=== PATIENT | female | born 1940 | race Caucasian/White ===

== ENCOUNTER 2019-02-25 11:49 | Observation (INO) | payer BC ==
[2019-02-25 12:28] LABS: BASO % 0.7 % (0-2.0); HEMATOCRIT 32.8 % (32.4-45.2); HEMOGLOBIN 10.7 GM/dL (10.7-15.3); LYMPH % 15.4 % (8-40); MCH 25.8 pg (25.7-33.7); MCHC 32.6 g/dl (32.0-36.0); MEAN CELL VOLUME 79.1 fl (80-96); MEAN PLT VOLUME 7.5 fl (7.5-11.1); MONO % 13.8 % (3.8-10.2); NEUT % 70.1 % (42.8-82.8); PLATELET COUNT 232 K/MM3 (134-434); RBC 4.15 M/mm3 (3.60-5.2); WHITE BLOOD COUNT 5.5 K/mm3 (4.0-10.0)
--- NOTE | 2019-02-25 12:40 | PDOC ---
Documentation entered by Carlton Carter SCRIBE, acting as scribe for Bryanna Valadez MD. Bryanna Valadez MD: This documentation has been prepared by the Raul swan Daniel, SCRIBE, under my direction and personally reviewed by me in its entirety. I confirm that the documentation accurately reflects all work, treatment, procedures, and medical decision making performed by me. History of Present Illness - General Chief Complaint: Syncope/Near Syncope Stated Complaint: SYNCOPE Time Seen by Provider: 02/25/19 11:57 History Source: Patient, Family Exam Limitations: No Limitations - History of Present Illness Initial Comments: 02/25/19 12:27 The patient is a 78 year old female with a past medical history of gastritis/ peptic ulcer disease, ulcerative colitis on mesalamine, HTN, retinal neuropathy , mild aortic stenosis, and GERD brought in today by EMS for evaluation of syncope. The patient reports that she was in [employer]u[place] when she felt a sudden severe headache and dizziness, went to sit down, and passed out. EMS reports that the patient was foaming at the mouth, but is amnesic to the events. afterwards, she felt nauseous. en route with EMS received zofran.. Patients family reports that the patient had a syncopal episode last year, which was attributed to the heat exhaustion/dehydration and notes that since her shoulder replacement in November 2018, the patients blood pressure has been difficult to control. As per EMS, the patient vomited once. Patient states that she currently feels fine but notes feeling out of sorts. Patient denies fever, chills. Denies chest pain, shortness of breath. Denies nausea, diarrhea, abdominal pain. Denies vision changes, blindness, eye pain/ discharge, hearing changes. denies recent sickness/respiratory illnesses. Allergies: amlodipine, lipase, NSAIDS Surgical history: laminectomy spinal fusion, rotator cuff repair, arthroplasty, reverse shoulder replacement (12/18), b/l hip replacements PCP: Anastacia Zuleta Brick Paver: Suzanne Wilkins 02/25/19 12:40 Past History - Past Medical History Allergies/Adverse Reactions: Allergies Allergy/AdvReac Type Severity Reaction Status Date / Time amlodipine [From Norvasc] Allergy Verified 02/25/19 11:51 lipase AdvReac Verified 02/25/19 11:51 NSAIDS (Non-Steroidal AdvReac Verified 02/25/19 11:51 Anti-Inflamma Cardiac Disorders: Yes (aortic stenosis) COPD: No GI Disorders: Yes (colitis) HTN: Yes Hypercholesterolemia: Yes Other medical history: optic neuropathy - Surgical History Neurologic Surgery: Yes (spinal fussion l2-l5) - Psycho Social/Smoking Cessation Hx Smoking History: Never smoked Have you smoked in the past 12 months: No Information on smoking cessation initiated: No Hx Alcohol Use: No Drug/Substance Use Hx: No Review of Systems - Review of Systems Able to Perform ROS?: Yes Comments:: 02/25/19 12:28 Constitutional: no fevers or chills. No weakness HEENT: +headache, dizziness. No congestion. No visual/hearing disturbances. CVS: no cp or syncope. Resp: no sob. No cough. Gastrointestinal: +vomiting. no abdominal pain, nausea, diarrhea. Genitourinary: no urinary sx, hematuria. MUSCULOSKELETAL: No joint pain and swelling. No neck or back pain. SKIN: no redness or skin changes, no discharge, no rash. No wounds. Hematologic: no easy bruising/bleeding. NEUROLOGIC: No headache, dizziness, LOC or altered mental status. No weakness, numbness or tingling. Psych: no anxiety or depression Allergic/Immunologic: no allergies All other systems reviewed and negative, or as documented in HPI. *Physical Exam - Vital Signs Last Vital Signs Temp Pulse Resp BP Pulse Ox 97.3 F L 65 18 159/76 96 02/25/19 12:02 02/25/19 12:02 02/25/19 12:02 02/25/19 12:02 02/25/19 12:02 - Physical Exam Comments: 02/25/19 12:29 General: Well appearing, awake and alert, NAD. HEENT: NCAT, PERRL, EOMI, clear conjunctiva, anicteric, moist mucus membranes, clear oropharynx, no oral lesions.. Neck: neck supple, FROM Resp: CTAB, normal and even respirations, no respiratory distress CVS: +holosystolic murmur. RRR, 2+ peripheral pulses throughout, no peripheral edema Abdomen: soft, NTND, no rebound or guarding. No CVAT. Back: nontender, normal inspection and ROM MSK: no edema, NOBLE x4, ROM intact. No clubbing or cyanosis. normal bulk and tone. Extremities: no calf tenderness Neuro: alert, oriented appropriately; no focal neurologic deficitsAlert, oriented to person time and place. No carotid bruit, CN II-XII grossly intact. Strength prox and distally 5/5 throughout. Sensation grossly intact to light touch. NOBLE x4. No cerebellar signs, no dysmetria, bilateral finger to nose and heel to [place] equal and symmetric. Speech clear. Psych: Calm and cooperative Skin: warm and well perfused, cap refill <2 sec, normal color Heart Score/ECG Review #1 ECG reviewed & interpreted by me at: 12:05 General ECG Interpretation: Sinus Rhythm, Normal Rate, Normal Intervals Compared to previous ECG there are: Previous ECG unavail 02/25/19 12:36 Nonspecific T wave flattening in lead III, note contiguously changes, no ST/ depressions or elevations. ED Treatment Course - LABORATORY CBC & Chemistry Diagram: 02/25/19 12:11 02/25/19 12:11 - ADDITIONAL ORDERS Additional order review: 02/25/19 12:11 RBC 4.15 MCV 79.1 L MCHC 32.6 RDW 15.0 MPV 7.5 Neutrophils % 70.1 Lymphocytes % 15.4 Monocytes % 13.8 H Eosinophils % 0.0 Basophils % 0.7 - RADIOLOGY Radiology Studies Ordered: Category Date Time Status HEAD CT WITHOUT CONTRAST [CT] Stat CT Scan 02/25/19 12:20 Ordered CHEST X-RAY PORTABLE* [RAD] Stat Radiology 02/25/19 11:58 Ordered Medical Decision Making - Medical Decision Making 02/25/19 12:36 Vital Signs Temp Pulse Resp BP Pulse Ox 97.3 F L 65 18 159/76 96 02/25/19 12:02 02/25/19 12:02 02/25/19 12:02 02/25/19 12:02 02/25/19 12:02 DDx. syncope: considered interval abnormalities including short QTC or long QT syndrome, WPW, conduction abnormality, Brugada, ACS, PE, electrolyte disturbances, metabolic derangement. seizure, [employer] lesion, CVA, ICH, SAH. Laboratory results reviewed within normal limits. Troponin is negative, EKG is unremarkable as documented, patient currently is asymptomatic, requesting food. CT head is negative for subarachnoid hemorrhage or CVA, as her onset of headache and symptoms were within 6-hour time time period from onset, 100% sensitivity to rule out for subarachnoid hemorrhage as etiology of her headache and syncope. She has no infectious symptoms. abdomen nontender. Neurologically intact as documented. Though there is a holosystolic murmur present with a history of aortic stenosis so there is concern that syncopal episode could be coming from a cardiac/structural etiology that warrants further echocardiogram, cardiology evaluation and inpatient management. Signed out to hospitalist team, Dr Santiago, for tele observation, medical management and workup of syncope 02/25/19 14:02 Discharge - Discharge Information Problems reviewed: Yes Clinical Impression/Diagnosis: Syncope Qualifiers: Syncope type: unspecified Qualified Code(s): R55 - Syncope and collapse Condition: Fair - Admission Yes - Follow up/Referral Referrals: Anastacia Raygoza MD [Primary Care Provider] - - Patient Discharge Instructions - Post Discharge Activity
[2019-02-25] MEDS ORDERED: ACETAMINOPHEN 325 MG TABLET (FP) PO ONE (13:00)
[2019-02-25] MEDS ORDERED: ACETAMINOPHEN 325 MG TABLET (FP) ONE (13:28)
[2019-02-25 13:45] LABS: ALK PHOS 75 U/L (45-117); ANION GAP 8 MMOL/L (8-16); BILIRUBIN,TOTAL 0.5 mg/dL (0.2-1); BLOOD UREA NITROGEN 19.3 mg/dL (7-18); CALCIUM 9.3 mg/dL (8.5-10.1); CHLORIDE 102 mmol/L (98-107); CO2 23 mmol/L (21-32); CREATININE 0.8 mg/dL (0.55-1.3); GLUCOSE,RANDOM 123 mg/dL (74-106); MAGNESIUM 2.2 mg/dL (1.8-2.4); POTASSIUM 4.3 mmol/L (3.5-5.1); SGOT/AST 31 U/L (15-37); SGPT/ALT 27 U/L (13-61); SODIUM 133 mmol/L (136-145); TOT PROT 7.6 g/dl (6.4-8.2)
[2019-02-25] MEDS ORDERED: SODIUM CHLORIDE 0.9% 500 ML INFUS.BAG IV ONE (13:52)
--- NOTE | 2019-02-25 14:55 | EKG ---
Test Reason : Blood Pressure : / mmHG Vent. Rate : 060 BPM Atrial Rate : 060 BPM P-R Int : 188 ms QRS Dur : 094 ms QT Int : 446 ms P-R-T Axes : 031 -10 020 degrees QTc Int : 446 ms NORMAL SINUS RHYTHM NORMAL ECG NO PREVIOUS ECGS AVAILABLE Confirmed by ОЛЬГА MORENO, HALLIE ([id number]) on 02/25/2019 2:55:22 PM Referred By: Confirmed By:HALLIE ROLON MD
--- NOTE | 2019-02-25 15:03 | CON.CARD ---
Consult Consult Specialty:: Cardiology Reason for Consultation:: syncope - History of Present Illness History of Present Illness: The patient is a 78 year old female with a past medical history of gastritis/ peptic ulcer disease, ulcerative colitis on mesalamine, HTN, retinal neuropathy , mild aortic stenosis, and GERD brought in today by EMS for evaluation of syncope. The patient reports that she was in [employer] when she felt a sudden severe headache and dizziness, went to sit down, and passed out. EMS reports that the patient was foaming at the mouth, but is amnesic to the events. afterwards, she felt nauseous. en route with EMS received zofran.. Patients family reports that the patient had a syncopal episode last year, which was attributed to the heat exhaustion/dehydration and notes that since her shoulder replacement in November 2018, the patients blood pressure has been difficult to control. As per EMS, the patient vomited once. Patient states that she currently feels fine but notes feeling out of sorts. Patient denies fever, chills. Denies chest pain, shortness of breath. Denies nausea, diarrhea, abdominal pain. Denies vision changes, blindness, eye pain/ discharge, hearing changes. denies recent sickness/respiratory illnesses. - History Source History Provided By: Medical Record - Past Medical History Cardio/Vascular: Yes: HTN - Alcohol/Substance Use Hx Alcohol Use: No - Smoking History Smoking history: Never smoked Have you smoked in the past 12 months: No Home Medications - Allergies Allergies/Adverse Reactions: Allergies Allergy/AdvReac Type Severity Reaction Status Date / Time amlodipine [From [facility]] Allergy Verified 02/25/19 11:51 lipase AdvReac Verified 02/25/19 11:51 NSAIDS (Non-Steroidal AdvReac Verified 02/25/19 11:51 Anti-Inflamma Review of Systems - Review of Systems Constitutional: reports: No Symptoms Eyes: reports: No Symptoms HENT: reports: No Symptoms Neck: reports: No Symptoms Cardiovascular: reports: No Symptoms Gastrointestinal: reports: Nausea Genitourinary: reports: No Symptoms Breasts: reports: No Symptoms Reported Musculoskeletal: reports: No Symptoms Integumentary: reports: No Symptoms Neurological: reports: Syncope Endocrine: reports: No Symptoms Hematology/Lymphatic: reports: No Symptoms Psychiatric: reports: No Symptoms Vital Signs: Vital Signs Temperature 97.3 F L 02/25/19 12:02 Pulse Rate 65 02/25/19 12:02 Respiratory Rate 18 02/25/19 12:02 Blood Pressure 159/76 02/25/19 12:02 O2 Sat by Pulse Oximetry (%) 96 02/25/19 12:02 Constitutional: Yes: Well Nourished, No Distress, Calm Eyes: Yes: WNL, Conjunctiva Clear, EOM Intact HENT: Yes: WNL, Atraumatic, Normocephalic Neck: Yes: WNL, Supple, Trachea Midline Respiratory: Yes: WNL, Regular, CTA Bilaterally Gastrointestinal: Yes: WNL, Normal Bowel Sounds Renal/: Yes: WNL Cardiovascular: Yes: WNL, Regular Rate and Rhythm Heart Sounds: Yes: S1, S2 Murmur: Yes: Systolic Murmur Musculoskeletal: Yes: WNL Extremities: Yes: WNL Integumentary: Yes: WNL Neurological: Yes: WNL, Alert, Oriented ...Motor Strength: WNL Psychiatric: Yes: WNL, Alert, Oriented - Other Data Labs, Other Data: CBC, BMP 02/25/19 12:11 02/25/19 12:11 Troponin, BNP 02/25/19 12:11 Troponin I < 0.02 Troponin, BNP 02/25/19 12:11 Troponin I < 0.02 Imaging - Results Chest X-ray: Image Reviewed (cm no i/e) EKG: Image Reviewed (sr wnl) Assessment/Plan 78 year old female with a past medical history of gastritis/peptic ulcer disease , ulcerative colitis on mesalamine, HTN, retinal neuropathy, mild aortic stenosis, and GERD brought in today by EMS for evaluation of syncope. Plan r/o mi echo 24 holter telemetry bp control Neuro eval to r/o seizure
[2019-02-25 15:10] LABS: HYALINE CASTS 17 /lpf (0-8); URINE APPEARANCE CLEAR; URINE BACTERIA 3.3 /hpf (NEGATIVE); URINE BILIRUBIN NEGATIVE (NEGATIVE); URINE COLOR DK YELLOW; URINE GLUCOSE (UA) NEGATIVE (NEGATIVE); URINE KETONE TRACE (NEGATIVE); URINE LEUK ESTERASE TRACE (NEGATIVE); URINE NITRITE NEGATIVE (NEGATIVE); URINE PROTEIN 2+ (NEGATIVE); URINE RBC 6 /hpf (0-4); URINE WBC 5 /hpf (0-5)
--- NOTE | 2019-02-25 16:21 | HP ---
CHIEF COMPLAINT: syncope at [employer] PCP:dr espinoza HISTORY OF PRESENT ILLNESS: This is a 78 year old female with a past medical history of gastritis/peptic ulcer disease, ulcerative colitis on mesalamine, HTN, retinal neuropathy, mild aortic stenosis, and GERD brought in today by EMS for evaluation of syncope. The patient reports that she was in [employer] when she felt a sudden moderate headache and dizziness, went to sit down, and passed out. EMS reports that the patient was foaming at the mouth, but is amnesic to the events. afterwards, she felt nauseous. abd EMS gave her zofran.. Patients daugher reports that the patient had a syncopal episode last year, which was attributed to the heat exhaustion/dehydration and notes that since her shoulder replacement in November 2018, the patients blood pressure has been difficult to control. As per EMS, the patient vomited once. Patient states that she currently feels fine but notes feeling out of sorts. In er she had ct head done and it is negative for any stroke. Review of systems denies fever, chills. Denies chest pain, shortness of breath. Denies nausea, diarrhea, abdominal pain. Denies vision changes, blindness, eye pain/discharge, hearing changes. denies recent sickness/respiratory illnesses. ER course was notable for: (1)normal ct head (2)h/o syncope in past (3)h/o aortic stenosis Recent Travel: PAST MEDICAL HISTORY:The patient is a 78 year old female with a past medical history of gastritis/peptic ulcer disease, ulcerative colitis on mesalamine, HTN , retinal neuropathy, mild aortic stenosis, and GERD PAST SURGICAL HISTORY:shoulder surgery Social History: Smoking:none Alcohol:none Drugs: none Allergies amlodipine [From Norvas] Allergy (Verified 02/25/19 11:51) lipase Adverse Reaction (Verified 02/25/19 11:51) NSAIDS (Non-Steroidal Anti-Inflamma Adverse Reaction (Verified 02/25/19 11:51) HOME MEDICATIONS: Home Medications Medication Instructions Recorded Carvedilol 25 mg PO BID 02/25/19 Mesalamine 800 mg PO BID 02/25/19 Omeprazole 20 mg PO DAILY 02/25/19 Ramipril 10 mg PO HS 02/25/19 Rosuvastatin Calcium [Crestor] 20 mg PO HS 02/25/19 hydrALAZINE HCL [Apresoline -] 25 mg PO AM 02/25/19 hydrALAZINE HCL [Apresoline -] 50 mg PO HS 02/25/19 REVIEW OF SYSTEMS CONSTITUTIONAL: Absent: fever, chills, diaphoresis, generalized weakness, malaise, loss of appetite, weight change HEENT: Absent: rhinorrhea, nasal congestion, throat pain, throat swelling, difficulty swallowing, mouth swelling, ear pain, eye pain, visual changes CARDIOVASCULAR: Absent: chest pain, syncope, palpitations, irregular heart rate, lightheadedness , peripheral edema RESPIRATORY: Absent: cough, shortness of breath, dyspnea with exertion, orthopnea, wheezing, stridor, hemoptysis GASTROINTESTINAL: Absent: abdominal pain, abdominal distension, nausea, vomiting, diarrhea, constipation, melena, hematochezia GENITOURINARY: Absent: dysuria, frequency, urgency, hesitancy, hematuria, flank pain, genital pain MUSCULOSKELETAL: Absent: myalgia, arthralgia, joint swelling, back pain, neck pain SKIN: Absent: rash, itching, pallor HEMATOLOGIC/IMMUNOLOGIC: Absent: easy bleeding, easy bruising, lymphadenopathy, frequent infections ENDOCRINE: Absent: unexplained weight gain, unexplained weight loss, heat intolerance, cold intolerance NEUROLOGIC: Absent: headache, focal weakness or paresthesias, dizziness, unsteady gait, seizure, mental status changes, bladder or bowel incontinence PSYCHIATRIC: Absent: anxiety, depression, suicidal or homicidal ideation, hallucinations. PHYSICAL EXAMINATION Vital Signs - 24 hr 02/25/19 02/25/19 12:02 15:57 Temperature 97.3 F L 97.5 F L Pulse Rate 65 67 Respiratory 18 18 Rate Blood Pressure 159/76 143/83 O2 Sat by Pulse 96 Oximetry (%) GENERAL: Awake, alert, and fully oriented, in no acute distress. HEAD: Normal with no signs of trauma. EYES: Pupils equal, round and reactive to light, extraocular movements intact, sclera anicteric, conjunctiva clear. No lid lag. EARS, NOSE, THROAT: Ears normal, nares patent, oropharynx clear without exudates. Moist mucous membranes. NECK: Normal range of motion, supple without lymphadenopathy, JVD, or masses. LUNGS: Breath sounds equal, clear to auscultation bilaterally. No wheezes, and no crackles. No accessory muscle use. HEART: Regular rate and rhythm, normal S1 and S2 without murmur, rub or gallop. ABDOMEN: Soft, nontender, not distended, normoactive bowel sounds, no guarding, no rebound, no masses. No hepatomegaly or splenomegaly. MUSCULOSKELETAL: Normal range of motion at all joints. No bony deformities or tenderness. No CVA tenderness. UPPER EXTREMITIES: 2+ pulses, warm, well-perfused. No cyanosis. No clubbing. No peripheral edema. LOWER EXTREMITIES: 2+ pulses, warm, well-perfused. No calf tenderness. No peripheral edema. NEUROLOGICAL: Cranial nerves II-XII intact. Normal speech. Normal gait. PSYCHIATRIC: Cooperative. Good eye contact. Appropriate mood and affect. SKIN: Warm, dry, normal turgor, no rashes or lesions noted, normal capillary refill. Laboratory Results - last 24 hr 02/25/19 02/25/19 02/25/19 12:11 12:11 14:58 WBC 5.5 RBC 4.15 Hgb 10.7 Hct 32.8 MCV 79.1 L MCH 25.8 MCHC 32.6 RDW 15.0 Plt Count 232 MPV 7.5 Absolute Neuts (auto) 3.9 Neutrophils % 70.1 Lymphocytes % 15.4 Monocytes % 13.8 H Eosinophils % 0.0 Basophils % 0.7 Nucleated RBC % 0 Sodium 133 L Potassium 4.3 Chloride 102 Carbon Dioxide 23 Anion Gap 8 BUN 19.3 H Creatinine 0.8 Est GFR (CKD-EPI)AfAm 83.00 Est GFR (CKD-EPI)NonAf 71.61 Random Glucose 123 H Calcium 9.3 Magnesium 2.2 Total Bilirubin 0.5 AST 31 ALT 27 Alkaline Phosphatase 75 Creatine Kinase 189 Creatine Kinase Index 1.0 CK-MB (CK-2) 1.9 Troponin I < 0.02 Total Protein 7.6 Albumin 4.0 Urine Color Dk yellow Urine Appearance Clear Urine pH 6.0 Ur Specific [place] 1.024 Urine Protein 2+ H Urine Glucose (UA) Negative Urine Ketones Trace H Urine Blood Negative Urine Nitrite Negative Urine Bilirubin Negative Urine Urobilinogen 1.0 Ur Leukocyte Esterase Trace Urine WBC (Auto) 5 Urine RBC (Auto) 6 Urine Casts (Auto) 17 U Epithel Cells (Auto) 6.0 Urine Bacteria (Auto) 3.3 ASSESSMENT/PLAN: The patient is a 78 year old female with a past medical history of gastritis/ peptic ulcer disease, ulcerative colitis on mesalamine, HTN, retinal neuropathy , mild aortic stenosis, and GERD brought in today by EMS for evaluation of syncope. htn colitis h/o high lipids on medications arthritis take prn tylenol. Plan will start her home meds Current Medications Carvedilol (Coreg -) 25 mg PO BID KELLIE Hydralazine HCl (Apresoline -) 25 mg PO TID KELLIE Mesalamine (Asacol Hd -) 1,600 mg PO DAILY KELLIE Pantoprazole Sodium (Protonix -) 20 mg PO DAILY KELLIE Ramipril (Altace -) 10 mg PO DAILY KELLIE Rosuvastatin Calcium (Crestor -) 20 mg PO HS KELLIE carotid sono r/o stenosis echo to look for aortic stenosis serial troponins r/o any acute mi cardiac consult r/o mi and look into cardiac causes of syncope her ct head is normal and requested neuro consult r/o any seizure . control her blood pressure Visit type - Emergency Visit Emergency Visit: Yes ED Registration Date: 02/25/19 Care time: The patient presented to the Emergency Department on the above date and was hospitalized for further evaluation of their emergent condition. - New Patient This patient is new to me today: Yes Date on this admission: 02/25/19 - Critical Care Critical Care patient: No
[2019-02-25 16:35] VITALS: BMI 30.3
[2019-02-25 16:53] LABS: URINE CRYSTALS MODERATE /hpf
[2019-02-25] MEDS ORDERED: hydrALAZINE HCL 25 MG TABLET (FP) PO SCH (22:00)
[2019-02-25] MEDS: ROSUVASTATIN CA 20 MG TABLET (FP) PO SCH (22:04)
[2019-02-25] MEDS: CARVEDILOL 25 MG TABLET (FP) PO SCH (22:04)
[2019-02-25] MEDS: RAMIPRIL 5 MG CAPSULE (FP) PO SCH (22:10)
[2019-02-25] MEDS: hydrALAZINE HCL 50 MG TABLET (FP) PO SCH (22:10)
[2019-02-25] MEDS: MESALAMINE 800 MG TABLET.DR PO SCH (22:12)
[2019-02-25] MEDS ORDERED: ACETAMINOPHEN 325 MG TABLET (FP) PO PRN (22:33)
[2019-02-26 07:01] LABS: BASO % 0.5 % (0-2.0); EOS % 0.3 % (0-4.5); HEMATOCRIT 29.6 % (32.4-45.2); HEMOGLOBIN 9.6 GM/dL (10.7-15.3); LYMPH % 33.9 % (8-40); MCH 25.8 pg (25.7-33.7); MCHC 32.5 g/dl (32.0-36.0); MEAN CELL VOLUME 79.4 fl (80-96); MONO % 16.1 % (3.8-10.2); NEUT % 49.2 % (42.8-82.8); PLATELET COUNT 197 K/MM3 (134-434); RBC 3.73 M/mm3 (3.60-5.2); RDW 15.5 % (11.6-15.6); WHITE BLOOD COUNT 3.4 K/mm3 (4.0-10.0)
[2019-02-26] MEDS: PANTOPRAZOLE 20 MG TABLET (FP) PO SCH (08:13)
[2019-02-26] MEDS ORDERED: RAMIPRIL 5 MG CAPSULE (FP) PO SCH (10:00)
[2019-02-26] MEDS ORDERED: MESALAMINE 800 MG TABLET.DR PO SCH (10:00)
--- NOTE | 2019-02-26 10:03 | CONSULT ---
Consult - text type - Consultation Consultation Note: Neurology CHIEF COMPLAINT: syncope HISTORY OF PRESENT ILLNESS: 78 year old female with a past medical history of gastritis/peptic ulcer disease , ulcerative colitis on mesalamine, HTN, retinal neuropathy, mild aortic stenosis, and GERD brought in by EMS for evaluation of syncope. The patient reports that [place] when she felt a sudden moderate headache and dizziness, went to sit down, and passed out. Patients daugher reportrf that the patient had a syncopal episode last year, which was attributed to the heat exhaustion/dehydration and notes that since her shoulder replacement in November 2018, the patients blood pressure has been difficult to control. As per EMS, the patient vomited once. Patient reported feeling at baseline and completed carotid Dopplers which showed no evidence of hemodynamically significant stenosis. Improved with hydration and fluids. Likely can follow-up outpatient. PAST MEDICAL HISTORY:The patient is a 78 year old female with a past medical history of gastritis/peptic ulcer disease, ulcerative colitis on mesalamine, HTN , retinal neuropathy, mild aortic stenosis, and GERD PAST SURGICAL HISTORY:shoulder surgery Social History: Smoking:none Alcohol:none Drugs: none Allergies amlodipine [From [facility]] Allergy (Verified 02/25/19 11:51) lipase Adverse Reaction (Verified 02/25/19 11:51) NSAIDS (Non-Steroidal Anti-Inflamma Adverse Reaction (Verified 02/25/19 11:51) HOME MEDICATIONS: Home Medications Medication Instructions Recorded Carvedilol 25 mg PO BID 02/25/19 Mesalamine 800 mg PO BID 02/25/19 Omeprazole 20 mg PO DAILY 02/25/19 Ramipril 10 mg PO HS 02/25/19 Rosuvastatin Calcium [Crestor] 20 mg PO HS 02/25/19 hydrALAZINE HCL [Apresoline -] 25 mg PO AM 02/25/19 hydrALAZINE HCL [Apresoline -] 50 mg PO HS 02/25/19 REVIEW OF SYSTEMS CONSTITUTIONAL: Absent: fever, chills, diaphoresis, generalized weakness, malaise, loss of appetite, weight change HEENT: Absent: rhinorrhea, nasal congestion, throat pain, throat swelling, difficulty swallowing, mouth swelling, ear pain, eye pain, visual changes CARDIOVASCULAR: Absent: chest pain, syncope, palpitations, irregular heart rate, lightheadedness , peripheral edema RESPIRATORY: Absent: cough, shortness of breath, dyspnea with exertion, orthopnea, wheezing, stridor, hemoptysis GASTROINTESTINAL: Absent: abdominal pain, abdominal distension, nausea, vomiting, diarrhea, constipation, melena, hematochezia GENITOURINARY: Absent: dysuria, frequency, urgency, hesitancy, hematuria, flank pain, genital pain MUSCULOSKELETAL: Absent: myalgia, arthralgia, joint swelling, back pain, neck pain SKIN: Absent: rash, itching, pallor HEMATOLOGIC/IMMUNOLOGIC: Absent: easy bleeding, easy bruising, lymphadenopathy, frequent infections ENDOCRINE: Absent: unexplained weight gain, unexplained weight loss, heat intolerance, cold intolerance NEUROLOGIC: Absent: headache, focal weakness or paresthesias, dizziness, unsteady gait, seizure, mental status changes, bladder or bowel incontinence PSYCHIATRIC: Absent: anxiety, depression, suicidal or homicidal ideation, hallucinations. PHYSICAL EXAMINATION Vital Signs Period Temp Pulse Resp BP Sys/Barney Pulse Ox Last 24 Hr 97.3 F-98.9 F 65-72 18-18 116-159/58-83 96-97 GENERAL: Awake, alert, and fully oriented, in no acute distress. HEAD: Normal with no signs of trauma. EYES: Pupils equal, round and reactive to light, extraocular movements intact, sclera anicteric, conjunctiva clear. No lid lag. EARS, NOSE, THROAT: Ears normal, nares patent, oropharynx clear without exudates. Moist mucous membranes. NECK: Normal range of motion, supple without lymphadenopathy, JVD, or masses. LUNGS: Breath sounds equal, clear to auscultation bilaterally. No wheezes, and no crackles. No accessory muscle use. HEART: Regular rate and rhythm, normal S1 and S2 without murmur, rub or gallop. ABDOMEN: Soft, nontender, not distended, normoactive bowel sounds, no guarding, no rebound, no masses. No hepatomegaly or splenomegaly. MUSCULOSKELETAL: Normal range of motion at all joints. No bony deformities or tenderness. No CVA tenderness. UPPER EXTREMITIES: 2+ pulses, warm, well-perfused. No cyanosis. No clubbing. No peripheral edema. LOWER EXTREMITIES: 2+ pulses, warm, well-perfused. No calf tenderness. No peripheral edema. NEUROLOGICAL: Cranial nerves II-XII intact. Normal speech. Normal gait. PSYCHIATRIC: Cooperative. Good eye contact. Appropriate mood and affect. SKIN: Warm, dry, normal turgor, no rashes or lesions noted, normal capillary refill. Laboratory Results - last 24 hr 02/25/19 02/25/19 02/25/19 12:11 12:11 14:58 WBC 5.5 RBC 4.15 Hgb 10.7 Hct 32.8 MCV 79.1 L MCH 25.8 MCHC 32.6 RDW 15.0 Plt Count 232 MPV 7.5 Absolute Neuts (auto) 3.9 Neutrophils % 70.1 Lymphocytes % 15.4 Monocytes % 13.8 H Eosinophils % 0.0 Basophils % 0.7 Nucleated RBC % 0 Sodium 133 L Potassium 4.3 Chloride 102 Carbon Dioxide 23 Anion Gap 8 BUN 19.3 H Creatinine 0.8 Est GFR (CKD-EPI)AfAm 83.00 Est GFR (CKD-EPI)NonAf 71.61 Random Glucose 123 H Calcium 9.3 Magnesium 2.2 Total Bilirubin 0.5 AST 31 ALT 27 Alkaline Phosphatase 75 Creatine Kinase 189 Creatine Kinase Index 1.0 CK-MB (CK-2) 1.9 Troponin I < 0.02 Total Protein 7.6 Albumin 4.0 Urine Color Dk yellow Urine Appearance Clear Urine pH 6.0 Ur Specific [place] 1.024 Urine Protein 2+ H Urine Glucose (UA) Negative Urine Ketones Trace H Urine Blood Negative Urine Nitrite Negative Urine Bilirubin Negative Urine Urobilinogen 1.0 Ur Leukocyte Esterase Trace Urine WBC (Auto) 5 Urine RBC (Auto) 6 Urine Casts (Auto) 17 U Epithel Cells (Auto) 6.0 Urine Bacteria (Auto) 3.3 ASSESSMENT/PLAN: 78 year old female with a past medical history of gastritis/peptic ulcer disease , ulcerative colitis on mesalamine, HTN, retinal neuropathy, mild aortic stenosis, and GERD brought in by EMS for evaluation of syncope. The patient reports that [place] when she felt a sudden moderate headache and dizziness, went to sit down, and passed out. Patients daugher reportrf that the patient had a syncopal episode last year, which was attributed to the heat exhaustion/dehydration and notes that since her shoulder replacement in November 2018, the patients blood pressure has been difficult to control. As per EMS, the patient vomited once. Patient reported feeling at baseline and completed carotid Dopplers which showed no evidence of hemodynamically significant stenosis. Improved with hydration and fluids. Likely can follow-up outpatient. follow-up echo, cardiology follow-up. Monitor blood pressure, maintain normotensive range. Maintain adequate hydration. Neurologically stable. Can follow up outpatient.
[2019-02-26] MEDS: hydrALAZINE HCL 25 MG TABLET (FP) PO SCH (10:29)
[2019-02-26] MEDS: CARVEDILOL 25 MG TABLET (FP) PO SCH ×2 (10:29→21:11)
[2019-02-26] MEDS: MESALAMINE 800 MG TABLET.DR PO SCH ×2 (10:29→21:11)
--- NOTE | 2019-02-26 11:27 | ECHO ---
Name: DIRK GONZALEZ Exam:Adult Echocardiogram Study Date: 02/26/2019 09:15 AM Age: 78 yrs Reason For Study: syncope r/o aortic stenosis Height: 59 in Weight: 143 lb BSA: 1.6 m2 MMode/2D Measurements & Calculations IVSd: 0.99 cm Ao root diam: 2.4 cm LVIDd: 4.1 cm LA dimension: 2.7 cm LVIDs: 2.8 cm LVPWd: 1.2 cm LVPWs: 1.5 cm EDV(Teich): 72.3 ml ESV(Teich): 30.7 ml LVOT diam: 1.9 cm LAV (MOD-bp): 62.0 ml RV S Dank: 20.7 cm/sec Doppler Measurements & Calculations MV E max dank: 79.0 cm/sec Ao V2 max: 276.0 cm/sec MV A max dank: 118.0 cm/sec Ao max P.5 mmHg MV E/A: 0.67 Ao V2 mean: 196.4 cm/sec MV dec time: 0.23 sec Ao mean P.6 mmHg Ao V2 VTI: 57.3 cm SAHARA(V,D): 1.1 cm2 LV V1 max P.7 mmHg TV V2 max: 82.8 cm/sec LV V1 max: 108.1 cm/sec TV max P.9 mmHg TV V2 mean: 54.6 cm/sec TV mean P.4 mmHg TV V2 VTI: 20.5 cm TR max dank: 285.1 cm/sec PA V2 max: 129.0 cm/sec TR max P.6 mmHg PA max P.7 mmHg Med Peak E' Dank: 5.4 cm/sec Med E/e': 14.7 Lat Peak E' Dank: 7.1 cm/sec Lat E/e': 11.1 Procedure A complete two-dimensional transthoracic echocardiogram was performed (2D, M-mode, Doppler and color flow Doppler). Left Ventricle The left ventricle is normal in size. Left ventricular systolic function is normal. Ejection Fraction = 60- 65%. Grade I diastolic dysfunction, (abnormal relaxation pattern). Ratio E/E'= 14. No regional wall m otion abnormalities noted. Right Ventricle The right ventricle is normal size. The right ventricular systolic function is normal. RV systolic TD I is 20 cm/s. Atria The left atrial size is normal. Right atrial size is normal. Mitral Valve There is mild mitral annular calcification. There is mild mitral regurgitation. Tricuspid Valve The tricuspid valve is normal in structure and function. There is mild to moderate tricuspid regurgit ation. Pulmonary artery systolic pressure is at least 42 mmHg if RA pressure is assumed 3 mmHg. Aortic Valve There is mild aortic sclerosis.;. No aortic regurgitation is present. Pulmonic Valve The pulmonic valve is not well visualized. Mild pulmonic valvular regurgitation. Great Vessels The aortic root is normal size. Pericardium/Pleura There is no pericardial effusion. Interpretation Summary The left ventricle is normal in size. Left ventricular systolic function is normal. No regional wall motion abnormalities noted. Ejection Fraction = 60-65%. Grade I diastolic dysfunction, (abnormal relaxation pattern). Ratio E/E'= 14 c/w normal filling pressure The right ventricular systolic function is normal. The left atrial size is normal. Right atrial size is normal. There is mild mitral annular calcification. There is mild mitral regurgitation. There is mild to moderate tricuspid regurgitation. Pulmonary artery systolic pressure is at least 42 mmHg if RA pressure is assumed 3 mmHg There is mild aortic sclerosis. Mild pulmonic valvular regurgitation. There is no pericardial effusion. Previous study is not available for comparison Sabino Ramírez MD 02/26/2019 11:27 AM
--- NOTE | 2019-02-26 12:36 | DS ---
Physical Exam: Update: Pt did not leave today due to concern over telemetry. electrolytes normal today. Will monitor overnight and D/C AM is telemetry non-significant SUBJECTIVE: Pt with 8-10 beats of nonsustained monomorphic VTach asymptomatic overnight. No symptoms currently. Reiterated that she previous had syncopal event 2/2 dehydration. OBJECTIVE: Vital Signs Period Temp Pulse Resp BP Sys/Barney Pulse Ox Last 24 Hr 97.5 F-98.9 F 66-72 18-18 116-157/58-83 96-97 PHYSICAL EXAM GENERAL: The patient is awake, alert, and fully oriented, in no acute distress. HEAD: Normal with no signs of trauma. EYES: PERRL, extraocular movements intact, sclera anicteric, conjunctiva clear. ENT: Ears normal, nares patent, oropharynx clear without exudates, moist mucous membranes. NECK: Trachea midline, full range of motion, supple. LUNGS: Breath sounds equal, clear to auscultation bilaterally, no wheezes, no crackles, no accessory muscle use. HEART: Regular rate and rhythm, S1, S2 without murmur, rub or gallop. ABDOMEN: Soft, nontender, nondistended, normoactive bowel sounds, no guarding, no rebound, no hepatosplenomegaly, no masses. EXTREMITIES: 2+ pulses, warm, well-perfused, no edema. NEUROLOGICAL: Cranial nerves II through XII grossly intact. Normal speech, gait not observed. PSYCH: Normal mood, normal affect. SKIN: Warm, dry, normal turgor, no rashes or lesions noted. LABS Laboratory Results - last 24 hr 02/25/19 02/25/19 02/26/19 12:11 14:58 05:30 WBC 3.4 L RBC 3.73 Hgb 9.6 L Hct 29.6 L MCV 79.4 L MCH 25.8 MCHC 32.5 RDW 15.5 Plt Count 197 MPV 8.0 Absolute Neuts (auto) 1.6 Neutrophils % 49.2 D Lymphocytes % 33.9 D Monocytes % 16.1 H Eosinophils % 0.3 D Basophils % 0.5 Nucleated RBC % 0 Sodium 133 L Potassium 4.3 Chloride 102 Carbon Dioxide 23 Anion Gap 8 BUN 19.3 H Creatinine 0.8 Est GFR (CKD-EPI)AfAm 83.00 Est GFR (CKD-EPI)NonAf 71.61 Random Glucose 123 H Calcium 9.3 Magnesium 2.2 Total Bilirubin 0.5 AST 31 ALT 27 Alkaline Phosphatase 75 Creatine Kinase 189 Creatine Kinase Index 1.0 CK-MB (CK-2) 1.9 Troponin I < 0.02 Total Protein 7.6 Albumin 4.0 Triglycerides Cholesterol Total LDL Cholesterol HDL Cholesterol Urine Color Dk yellow Urine Appearance Clear Urine pH 6.0 Ur Specific [place] 1.024 Urine Protein 2+ H Urine Glucose (UA) Negative Urine Ketones Trace H Urine Blood Negative Urine Nitrite Negative Urine Bilirubin Negative Urine Urobilinogen 1.0 Ur Leukocyte Esterase Trace Urine WBC (Auto) 5 Urine RBC (Auto) 6 Urine Casts (Auto) 17 U Pathogenic Cast Auto None seen U Epithel Cells (Auto) 6.0 Urine Crystals (Auto) Moderate Urine Bacteria (Auto) 3.3 02/26/19 02/26/19 05:30 05:30 WBC RBC Hgb Hct MCV MCH MCHC RDW Plt Count MPV Absolute Neuts (auto) Neutrophils % Lymphocytes % Monocytes % Eosinophils % Basophils % Nucleated RBC % Sodium Potassium Chloride Carbon Dioxide Anion Gap BUN Creatinine Est GFR (CKD-EPI)AfAm Est GFR (CKD-EPI)NonAf Random Glucose Calcium Magnesium Total Bilirubin AST ALT Alkaline Phosphatase Creatine Kinase 150 Creatine Kinase Index 0.9 CK-MB (CK-2) 1.4 Troponin I < 0.02 Total Protein Albumin Triglycerides 185 H Cholesterol 134 Total LDL Cholesterol 71 HDL Cholesterol 38 L Urine Color Urine Appearance Urine pH Ur Specific [place] Urine Protein Urine Glucose (UA) Urine Ketones Urine Blood Urine Nitrite Urine Bilirubin Urine Urobilinogen Ur Leukocyte Esterase Urine WBC (Auto) Urine RBC (Auto) Urine Casts (Auto) U Pathogenic Cast Auto U Epithel Cells (Auto) Urine Crystals (Auto) Urine Bacteria (Auto) Active Medications Acetaminophen (Tylenol -) 650 mg PO Q6H PRN PRN Reason: PAIN LEVEL 1-5 Last Admin: 02/25/19 22:41 Dose: 650 mg Carvedilol (Coreg -) 25 mg PO BID [facility] Last Admin: 02/26/19 21:11 Dose: 25 mg Hydralazine HCl (Apresoline -) 25 mg PO DAILY [facility] Last Admin: 02/26/19 10:29 Dose: 25 mg Hydralazine HCl (Apresoline -) 50 mg PO [facility] Last Admin: 02/26/19 21:10 Dose: 50 mg Mesalamine (Asacol Hd -) 800 mg PO BID [facility] Last Admin: 02/26/19 21:11 Dose: 800 mg Pantoprazole Sodium (Protonix -) 20 mg PO DAILY@0700 [facility] Last Admin: 02/26/19 08:13 Dose: 20 mg Ramipril (Altace -) 10 mg PO [facility] Last Admin: 02/26/19 21:10 Dose: 10 mg Rosuvastatin Calcium (Crestor -) 20 mg PO [facility] Last Admin: 02/26/19 21:11 Dose: 20 mg Imaging: Echocardiogram: Interpretation Summary The left ventricle is normal in size. Left ventricular systolic function is normal. No regional wall motion abnormalities noted. Ejection Fraction = 60-65%. Grade I diastolic dysfunction, (abnormal relaxation pattern). Ratio E/E'= 14 c/w normal filling pressure The left atrial size is normal. Right atrial size is normal. There is mild mitral annular calcification. There is mild mitral regurgitation. There is mild to moderate tricuspid regurgitation. Pulmonary artery systolic pressure is at least 42 mmHg if RA pressure is assumed 3 mmHg There is moderate aortic sclerosis. Cannot rule out mild aortic stenosis with mean aortic valve gradient of 18 mmHg and SAHARA 1.1 cm2 Mild pulmonic valvular regurgitation. There is no pericardial effusion. Carotid Duplex: IMPRESSION: Moderate atherosclerotic disease with no evidence of hemodynamically significant stenoses Head CT: No evidence of acute intracranial pathology. HOSPITAL COURSE: Date of Admission:02/25/19 Date of Discharge: 02/26/19 Pt admitted on 02/25/19 due to syncopal episode. Pt was monitored on telemetry event recording, had carotid ultrasound and echocardiogram taken as above. Pt remained asymptomatic throughout hospital stay. Pt's orthostatics were taken which were unrevealing. Pt is being discharged in stable condition with instructions to follow-up with cardiology outpatient for long-term loop recorder vs. event monitor. Minutes to complete discharge: 35 <Mo Muñoz - Last Filed: 02/26/19 22:40> Physical Exam: SUBJECTIVE: Patient seen and examined OBJECTIVE: Vital Signs Period Temp Pulse Resp BP Sys/Barney Pulse Ox Last 24 Hr 97.8 F-98.9 F 62-76 18-18 105-166/54-94 98 PHYSICAL EXAM GENERAL: The patient is awake, alert, and fully oriented, in no acute distress. HEAD: Normal with no signs of trauma. EYES: PERRL, extraocular movements intact, sclera anicteric, conjunctiva clear. ENT: Ears normal, nares patent, oropharynx clear without exudates, moist mucous membranes. NECK: Trachea midline, full range of motion, supple. LUNGS: Breath sounds equal, clear to auscultation bilaterally, no wheezes, no crackles, no accessory muscle use. HEART: Regular rate and rhythm, S1, S2 without murmur, rub or gallop. ABDOMEN: Soft, nontender, nondistended, normoactive bowel sounds, no guarding, no rebound, no hepatosplenomegaly, no masses. EXTREMITIES: 2+ pulses, warm, well-perfused, no edema. NEUROLOGICAL: Cranial nerves II through XII grossly intact. Normal speech, gait not observed. PSYCH: Normal mood, normal affect. SKIN: Warm, dry, normal turgor, no rashes or lesions noted. LABS Laboratory Results - last 24 hr 02/26/19 02/26/19 02/26/19 05:30 05:30 05:30 WBC 3.4 L RBC 3.73 Hgb 9.6 L Hct 29.6 L MCV 79.4 L MCH 25.8 MCHC 32.5 RDW 15.5 Plt Count 197 MPV 8.0 Absolute Neuts (auto) 1.6 Neutrophils % 49.2 D Lymphocytes % 33.9 D Monocytes % 16.1 H Eosinophils % 0.3 D Basophils % 0.5 Nucleated RBC % 0 Sodium 137 Potassium 4.0 Chloride 104 Carbon Dioxide 22 Anion Gap 10 BUN 14.0 Creatinine 0.8 Est GFR (CKD-EPI)AfAm 83.00 Est GFR (CKD-EPI)NonAf 71.61 Random Glucose 88 Calcium 9.0 Magnesium 1.8 Creatine Kinase 150 Creatine Kinase Index 0.9 CK-MB (CK-2) 1.4 Troponin I < 0.02 Triglycerides 185 H Cholesterol 134 Total LDL Cholesterol 71 HDL Cholesterol 38 L HOSPITAL COURSE: Date of Admission:02/25/19 Date of Discharge: 02/26/19 <Miguel Beltran - Last Filed: 02/26/19 23:43> Discharge Summary Problems reviewed: Yes Reason For Visit: SYNCOPE Current Active Problems Syncope (Acute) - Home Medications Comprehensive Discharge Medication List: Ambulatory Orders Carvedilol 25 mg PO BID 02/25/19 Mesalamine 800 mg PO BID 02/25/19 Omeprazole 20 mg PO DAILY 02/25/19 Ramipril 10 mg PO HS 02/25/19 Rosuvastatin Calcium [Crestor] 20 mg PO HS 02/25/19 hydrALAZINE HCL [Apresoline -] 25 mg PO AM 02/25/19 hydrALAZINE HCL [Apresoline -] 50 mg PO HS 02/25/19 <Mo Muñoz - Last Filed: 02/26/19 22:40> Current Active Problems Syncope (Acute) - Home Medications Comprehensive Discharge Medication List: Ambulatory Orders Carvedilol 25 mg PO BID 02/25/19 Mesalamine 800 mg PO BID 02/25/19 Omeprazole 20 mg PO DAILY 02/25/19 Ramipril 10 mg PO HS 02/25/19 Rosuvastatin Calcium [Crestor] 20 mg PO HS 02/25/19 hydrALAZINE HCL [Apresoline -] 25 mg PO AM 02/25/19 hydrALAZINE HCL [Apresoline -] 50 mg PO HS 02/25/19 <Miguel Beltran - Last Filed: 02/26/19 23:43> Condition: Improved - Instructions Diet, Activity, Other Instructions: You were seen for your fainting spell. It was likely due to dehydration. We checked an ultrasound of your heart and kept you on monitoring and we did not see any abnormalities. You will need to follow-up with Dr. Goss and Dr. Robertson for a long-term heart monitor. Medications: Please stay hydrated as this is probably the reason for the fainting spell. Referrals: Anastacia Raygoza MD [Primary Care Provider] - Case Riojas MD [Staff Physician] - Ovi Goss MD [Staff Physician] - Disposition: HOME This patient is new to me today: Yes Date on this admission: 02/26/19 Emergency Visit: Yes ED Registration Date: 02/25/19 Care time: The patient presented to the Emergency Department on the above date and was hospitalized for further evaluation of their emergent condition. Critical Care patient: No - Discharge Referral Referred to [facility] Med P.C.: No <Mo Muñoz - Last Filed: 02/26/19 22:40> ATTENDING PHYSICIAN STATEMENT I saw and evaluated the patient. I reviewed the resident's note and discussed the case with the resident. I agree with the resident's findings and plan as documented. SUBJECTIVE: OBJECTIVE: ASSESSMENT AND PLAN: <Mo Muñoz - Last Filed: 02/26/19 22:40> ATTENDING PHYSICIAN STATEMENT I saw and evaluated the patient. I reviewed the resident's note and discussed the case with the resident. I agree with the resident's findings and plan as documented. SUBJECTIVE: OBJECTIVE: ASSESSMENT AND PLAN: <Miguel Beltran - Last Filed: 02/26/19 23:43>
[2019-02-26 14:59] LABS: CREATININE 0.8 mg/dL (0.55-1.3); MAGNESIUM 1.8 mg/dL (1.8-2.4)
--- NOTE | 2019-02-26 15:45 | EKG ---
Test Reason : Blood Pressure : / mmHG Vent. Rate : 068 BPM Atrial Rate : 068 BPM P-R Int : 234 ms QRS Dur : 092 ms QT Int : 402 ms P-R-T Axes : 028 002 012 degrees QTc Int : 427 ms SINUS RHYTHM WITH 1ST DEGREE A-V BLOCK OTHERWISE NORMAL ECG WHEN COMPARED WITH ECG OF 25-FEB-2019 12:05, [place] INTERVAL HAS INCREASED Confirmed by KATIE MORENO, SHANON ([id number]) on 02/26/2019 3:44:40 PM Referred By: ОЛЬГА SKINNER DR Confirmed By:SHANON WILSON MD
--- NOTE | 2019-02-26 15:52 | PN ---
Progress Note, Physician History of Present Illness: The patient is a 78 year old female with a past medical history of gastritis/ peptic ulcer disease, ulcerative colitis on mesalamine, HTN, retinal neuropathy , mild aortic stenosis, and GERD brought in today by EMS for evaluation of syncope. The patient reports that [place] when she felt a sudden severe headache and dizziness, went to sit down, and passed out. EMS reports that the patient was foaming at the mouth, but is amnesic to the events. afterwards, she felt nauseous. en route with EMS received zofran.. Patients family reports that the patient had a syncopal episode last year, which was attributed to the heat exhaustion/dehydration and notes that since her shoulder replacement in November 2018, the patients blood pressure has been difficult to control. As per EMS, the patient vomited once. Patient states that she currently feels fine but notes feeling out of sorts. Patient denies fever, chills. Denies chest pain, shortness of breath. Denies nausea, diarrhea, abdominal pain. Denies vision changes, blindness, eye pain/ discharge, hearing changes. denies recent sickness/respiratory illnesses. - Current Medication List Current Medications: Active Medications Acetaminophen (Tylenol -) 650 mg PO Q6H PRN PRN Reason: PAIN LEVEL 1-5 Last Admin: 02/25/19 22:41 Dose: 650 mg Carvedilol (Coreg -) 25 mg PO BID [facility] Last Admin: 02/26/19 10:29 Dose: 25 mg Hydralazine HCl (Apresoline -) 25 mg PO DAILY [facility] Last Admin: 02/26/19 10:29 Dose: 25 mg Hydralazine HCl (Apresoline -) 50 mg PO [facility] Last Admin: 02/25/19 22:10 Dose: 50 mg Mesalamine (Asacol Hd -) 800 mg PO BID [facility] Last Admin: 02/26/19 10:29 Dose: 800 mg Pantoprazole Sodium (Protonix -) 20 mg PO DAILY@0700 [facility] Last Admin: 02/26/19 08:13 Dose: 20 mg Ramipril (Altace -) 10 mg PO [facility] Last Admin: 02/25/19 22:10 Dose: 10 mg Rosuvastatin Calcium (Crestor -) 20 mg PO [facility] Last Admin: 02/25/19 22:04 Dose: 20 mg - Objective Vital Signs: Vital Signs Temperature 98.9 F 02/26/19 08:31 Pulse Rate 76 02/26/19 13:00 Respiratory Rate 18 02/26/19 13:00 Blood Pressure 108/57 L 02/26/19 13:00 O2 Sat by Pulse Oximetry (%) 96 02/25/19 20:43 Eyes: Yes: WNL, Conjunctiva Clear, EOM Intact HENT: Yes: WNL, Atraumatic, Normocephalic Neck: Yes: WNL, Supple, Trachea Midline Cardiovascular: Yes: WNL, Regular Rate and Rhythm Respiratory: Yes: WNL, Regular, CTA Bilaterally Gastrointestinal: Yes: WNL, Normal Bowel Sounds Genitourinary: Yes: WNL Musculoskeletal: Yes: WNL Extremities: Yes: WNL Edema: No Integumentary: Yes: WNL Neurological: Yes: WNL, Alert, Oriented ...Motor Strength: WNL Psychiatric: Yes: WNL Labs: CBC, BMP 02/26/19 05:30 02/26/19 05:30 Assessment/Plan 78 year old female with a past medical history of gastritis/peptic ulcer disease , ulcerative colitis on mesalamine, HTN, retinal neuropathy, mild aortic stenosis, and GERD brought in today by EMS for evaluation of syncope. Plan r/o mi echo 24 holter carotid duplex telemetry bp control Neuro eval to r/o seizure
[2019-02-26] MEDS: RAMIPRIL 5 MG CAPSULE (FP) PO SCH (21:10)
[2019-02-26] MEDS: hydrALAZINE HCL 50 MG TABLET (FP) PO SCH (21:10)
[2019-02-26] MEDS: ROSUVASTATIN CA 20 MG TABLET (FP) PO SCH (21:11)
[2019-02-27] MEDS: PANTOPRAZOLE 20 MG TABLET (FP) PO SCH (06:37)
[2019-02-27 06:47] LABS: HEMOGLOBIN 10.1 GM/dL (10.7-15.3); MCH 26.1 pg (25.7-33.7); MCHC 32.7 g/dl (32.0-36.0); MEAN CELL VOLUME 79.8 fl (80-96); MEAN PLT VOLUME 7.7 fl (7.5-11.1); PLATELET COUNT 187 K/MM3 (134-434); RBC 3.88 M/mm3 (3.60-5.2); RDW 15.2 % (11.6-15.6); WHITE BLOOD COUNT 3.5 K/mm3 (4.0-10.0)
[2019-02-27] MEDS ORDERED: PANTOPRAZOLE 20 MG TABLET (FP) PO SCH (07:00)
[2019-02-27 07:14] LABS: BLOOD UREA NITROGEN 17.3 mg/dL (7-18); CALCIUM 9.2 mg/dL (8.5-10.1); CREATININE 0.7 mg/dL (0.55-1.3); POTASSIUM 4.2 mmol/L (3.5-5.1)
--- NOTE | 2019-02-27 08:45 | PN ---
Progress Note (short form) - Note Progress Note: Neurology CHIEF COMPLAINT: syncope HISTORY OF PRESENT ILLNESS: 78 year old female with a past medical history of gastritis/peptic ulcer disease , ulcerative colitis on mesalamine, HTN, retinal neuropathy, mild aortic stenosis, and GERD brought in by EMS for evaluation of syncope. The patient reports that she was in tenriism when she felt a sudden moderate headache and dizziness, went to sit down, and passed out. Patients daugher reportrf that the patient had a syncopal episode last year, which was attributed to the heat exhaustion/dehydration and notes that since her shoulder replacement in November 2018, the patients blood pressure has been difficult to control. As per EMS, the patient vomited once. Patient reported feeling at baseline and completed carotid Dopplers which showed no evidence of hemodynamically significant stenosis. Improved with hydration and fluids. Discussed in detail wwith patient and daughter at bedside this morning. Echo also completed and discussed normal left ventricular and right ventricular systolic function as well as normal ejection fraction. I informed them of my concern regarding her hydration which she agrees is inconsistent. I advised that typically 64 ounces of water is recommended and patient should have at least 32 ounces daily and they were in agreement. The daughter was inquiring if any further neurologic workup needed and I indicated not at this time but we'll consider further evaluation as outpatient and they were in agreement. Active Medications Acetaminophen (Tylenol -) 650 mg PO Q6H PRN PRN Reason: PAIN LEVEL 1-5 Last Admin: 02/25/19 22:41 Dose: 650 mg Carvedilol (Coreg -) 25 mg PO BID [facility] Last Admin: 02/26/19 21:11 Dose: 25 mg Hydralazine HCl (Apresoline -) 25 mg PO DAILY [facility] Last Admin: 02/26/19 10:29 Dose: 25 mg Hydralazine HCl (Apresoline -) 50 mg PO [facility] Last Admin: 02/26/19 21:10 Dose: 50 mg Mesalamine (Asacol Hd -) 800 mg PO BID [facility] Last Admin: 02/26/19 21:11 Dose: 800 mg Pantoprazole Sodium (Protonix -) 20 mg PO DAILY@0700 [facility] Last Admin: 02/27/19 06:37 Dose: 20 mg Ramipril (Altace -) 10 mg PO [facility] Last Admin: 02/26/19 21:10 Dose: 10 mg Rosuvastatin Calcium (Crestor -) 20 mg PO HS [facility] Last Admin: 02/26/19 21:11 Dose: 20 mg PHYSICAL EXAMINATION Vital Signs Period Temp Pulse Resp BP Sys/Barney Pulse Ox Last 24 Hr 97.6 F-97.9 F 62-76 18-18 105-166/54-94 98 GENERAL: Awake, alert, and fully oriented, in no acute distress. HEAD: Normal with no signs of trauma. EYES: Pupils equal, round and reactive to light, extraocular movements intact, sclera anicteric, conjunctiva clear. No lid lag. EARS, NOSE, THROAT: Ears normal, nares patent, oropharynx clear without exudates. Moist mucous membranes. NECK: Normal range of motion, supple without lymphadenopathy, JVD, or masses. LUNGS: Breath sounds equal, clear to auscultation bilaterally. No wheezes, and no crackles. No accessory muscle use. HEART: Regular rate and rhythm, normal S1 and S2 without murmur, rub or gallop. ABDOMEN: Soft, nontender, not distended, normoactive bowel sounds, no guarding, no rebound, no masses. No hepatomegaly or splenomegaly. MUSCULOSKELETAL: Normal range of motion at all joints. No bony deformities or tenderness. No CVA tenderness. UPPER EXTREMITIES: 2+ pulses, warm, well-perfused. No cyanosis. No clubbing. No peripheral edema. LOWER EXTREMITIES: 2+ pulses, warm, well-perfused. No calf tenderness. No peripheral edema. NEUROLOGICAL: Cranial nerves II-XII intact. Normal speech. Normal gait. PSYCHIATRIC: Cooperative. Good eye contact. Appropriate mood and affect. SKIN: Warm, dry, normal turgor, no rashes or lesions noted, normal capillary refill. CBCD WBC 3.5 K/mm3 (4.0-10.0) L 02/27/19 05:35 RBC 3.88 M/mm3 (3.60-5.2) 02/27/19 05:35 Hgb 10.1 GM/dL (10.7-15.3) L 02/27/19 05:35 Hct 31.0 % (32.4-45.2) L 02/27/19 05:35 MCV 79.8 fl (80-96) L 02/27/19 05:35 MCHC 32.7 g/dl (32.0-36.0) 02/27/19 05:35 RDW 15.2 % (11.6-15.6) 02/27/19 05:35 Plt Count 187 K/MM3 (134-434) 02/27/19 05:35 MPV 7.7 fl (7.5-11.1) 02/27/19 05:35 CMP Sodium 133 mmol/L (136-145) L 02/27/19 05:35 Potassium 4.2 mmol/L (3.5-5.1) 02/27/19 05:35 Chloride 100 mmol/L (98-107) 02/27/19 05:35 Carbon Dioxide 26 mmol/L (21-32) 02/27/19 05:35 Anion Gap 7 MMOL/L (8-16) L 02/27/19 05:35 BUN 17.3 mg/dL (7-18) 02/27/19 05:35 Creatinine 0.7 mg/dL (0.55-1.3) 02/27/19 05:35 Random Glucose 97 mg/dL (74-106) 02/27/19 05:35 Calcium 9.2 mg/dL (8.5-10.1) 02/27/19 05:35 Total Bilirubin 0.5 mg/dL (0.2-1) 02/25/19 12:11 AST 31 U/L (15-37) 02/25/19 12:11 ALT 27 U/L (13-61) 02/25/19 12:11 Alkaline Phosphatase 75 U/L (45-117) 02/25/19 12:11 Total Protein 7.6 g/dl (6.4-8.2) 02/25/19 12:11 Albumin 4.0 g/dl (3.4-5.0) 02/25/19 12:11 CARDIAC ENZYMES Creatine Kinase 150 U/L (26-192) 02/26/19 05:30 Troponin I < 0.02 ng/ml (0.00-0.05) 02/26/19 05:30 ASSESSMENT/PLAN: 78 year old female with a past medical history of gastritis/peptic ulcer disease , ulcerative colitis on mesalamine, HTN, retinal neuropathy, mild aortic stenosis, and GERD brought in by EMS for evaluation of syncope. The patient reports that she was in tenriism when she felt a sudden moderate headache and dizziness, went to sit down, and passed out. Patients daugher reportrf that the patient had a syncopal episode last year, which was attributed to the heat exhaustion/dehydration and notes that since her shoulder replacement in November 2018, the patients blood pressure has been difficult to control. As per EMS, the patient vomited once. Patient reported feeling at baseline and completed carotid Dopplers which showed no evidence of hemodynamically significant stenosis. Improved with hydration and fluids. Echo also completed and discussed normal left ventricular and right ventricular systolic function as well as normal ejection fraction. I informed them of my concern regarding her hydration which she agrees is inconsistent. I advised that typically 64 ounces of water is recommended and patient should have at least 32 ounces daily and they were in agreement. The daughter was inquiring if any further neurologic workup needed and I indicated not at this time but we'll consider further evaluation as outpatient and they were in agreement. Monitor blood pressure, maintain normotensive range. Maintain adequate hydration. Neurologically stable. Can follow up outpatient.
--- NOTE | 2019-02-27 08:53 | PN ---
Progress Note (short form) - Note Progress Note: HPI: No events on telemetry over this night. Pt has no complaints today and eager to go home. Vital Signs Temperature 97.8 F 02/27/19 06:00 Pulse Rate 66 02/27/19 06:00 Respiratory Rate 18 02/27/19 06:00 Blood Pressure 143/72 02/27/19 06:00 O2 Sat by Pulse Oximetry (%) 98 02/26/19 20:26 PE: GEN: NAD, awake, alert, oriented x3 HEENT: NC/AT, EMILEE, sclera anicteric LUNG: CTA b/l no wheezes on RA CARD: RRR no murmurs appreciated today Abd: Soft, NT/ND normoactive BS Ext: No edema Active Medications Acetaminophen (Tylenol -) 650 mg PO Q6H PRN PRN Reason: PAIN LEVEL 1-5 Last Admin: 02/25/19 22:41 Dose: 650 mg Carvedilol (Coreg -) 25 mg PO BID [facility] Last Admin: 02/26/19 21:11 Dose: 25 mg Hydralazine HCl (Apresoline -) 25 mg PO DAILY [facility] Last Admin: 02/26/19 10:29 Dose: 25 mg Hydralazine HCl (Apresoline -) 50 mg PO HS [facility] Last Admin: 02/26/19 21:10 Dose: 50 mg Mesalamine (Asacol Hd -) 800 mg PO BID [facility] Last Admin: 02/26/19 21:11 Dose: 800 mg Pantoprazole Sodium (Protonix -) 20 mg PO DAILY@0700 [facility] Last Admin: 02/27/19 06:37 Dose: 20 mg Ramipril (Altace -) 10 mg PO HS [facility] Last Admin: 02/26/19 21:10 Dose: 10 mg Rosuvastatin Calcium (Crestor -) 20 mg PO HS [facility] Last Admin: 02/26/19 21:11 Dose: 20 mg A/P Syncope likely 2/2 to dehydration Hx of HTN Ulcerative Colitis Hx of HLD --Pt to continue home medications --Antihypertensives being monitored every 2 weeks by outpatient PCP --Can continue Crestor 20mg HS and Coreg 25mg BID PO --Rest per D/C summary yesterday
[2019-02-27 08:55] VITALS: BP 147/72; PULSE 70; TEMP 97.7
[2019-02-27] MEDS: MESALAMINE 800 MG TABLET.DR PO SCH (09:48)
[2019-02-27] MEDS: hydrALAZINE HCL 25 MG TABLET (FP) PO SCH (09:48)
[2019-02-27] MEDS: CARVEDILOL 25 MG TABLET (FP) PO SCH (09:48)
--- NOTE | 2019-02-27 13:12 | HOL ---
Hook-up date: 2019-02-25 16:01:00 Duration: 23:43:00 Test Indications: SYNCOPE Medications: 346017 QRS complexes 65 Ventricular ectopics which represent <1 % of total QRS comp. 402 Supraventricular ectopics which represent <1 % of total QRS comp. * Paced QRS complexs which represent % of total QRS comp. * % of Time Classified as Noise VENTRICULAR ECTOPY 63 Isolated 0 Bigeminal Cycles 1 Couplets 0 Runs 0 Beats in Runs * Beats LONGEST at * BPM at :: -- * Beats FASTEST at * BPM at :: -- SUPRAVENTRICULAR ECTOPY 252 Isolated 16 Couplets 25 Runs 118 Beats in Runs 14 Beats LONGEST at 121 BPM at 15:16:07 2019-02-26 3 Beats FASTEST at 131 BPM at 15:13:30 2019-02-26 HEART RATES 59 MIN at 16:46:42 2019-02-25 71 AVG 94 MAX at 17:42:48 2019-02-25 LONGEST RR 1.400 secs at 03:07:06 2019-02-26 NSR throughout (59-94 BPM, average HR 71 BPM). Single PVC's. No VT or pauses. Frequent APC's. Brief self terminating runs of atrial tachycardia, longest 14 beats. SCANNED BY: MAGNO 02/27/19 Confirmed by Robert Napoles MD ([id number]) on 02/27/2019 1:12:24 PM Referred By: Jeremi HAMILTON Overread By: Robert Napoles MD
== END 2019-02-27 10:43 | disposition home or self-care (01) ==
LOC: JER 11:49 → JERBED 14:02 → J4S 15:54
PROVIDERS: ADMIT Internal Medicine; ATTEND Internal Medicine
PROC: 3E0337Z Introduction of Electrolytic and Water Balance Substance into Peripheral Vein, Percutaneous Approach (ICD-10-PCS; principal; 2019-02-25)
DX: R55 Syncope and collapse (principal); I10 Essential (primary) hypertension; H47.099 Other disorders of optic nerve, not elsewhere classified, unspecified eye; I35.0 Nonrheumatic aortic (valve) stenosis; K21.9 Gastro-esophageal reflux disease without esophagitis; E78.5 Hyperlipidemia, unspecified; K51.90 Ulcerative colitis, unspecified, without complications; M19.90 Unspecified osteoarthritis, unspecified site; Z87.11 Personal history of peptic ulcer disease; Z88.8 Allergy status to other drugs, medicaments and biological substances
CPT/HCPCS: 36415; 70450-TC; 71045-TC-FY; 80048; 80053; 80061; 81003; 82550; 82553; 82728; 83540; 83550; 83721; 83735; 84484; 85025; 85027; 87086; 87186; 93005; 93010; 93225; 93226; 93306-TC; 93880-TC; 99285-25; G0378

== ENCOUNTER 2021-04-30 18:29 | Inpatient (IN) | payer BC ==
[2021-04-30] MEDS ORDERED: CLOPIDOGREL BISULFATE 300 MG TABLET PO ONE (19:39)
[2021-04-30] MEDS ORDERED: CARVEDILOL 25 MG TABLET (FP) PO ONE (19:39)
[2021-04-30] MEDS ORDERED: ASPIRIN 81 MG CHEWABLE TABLETS PO ONE (19:39)
[2021-04-30] MEDS ORDERED: FAMOTIDINE 20 MG/50 ML IVPB 20 MG/50 ML MG IVPB ONE ×2 (19:42→19:51)
[2021-04-30 19:46] LABS: BASO % 0.8 % (0-2.0); EOS % 3.7 % (0-4.5); HEMATOCRIT 43.5 % (32.4-45.2); HEMOGLOBIN 14.7 GM/dL (10.7-15.3); MCH 30.8 pg (25.7-33.7); MCHC 33.7 g/dl (32.0-36.0); MEAN CELL VOLUME 91.5 fl (80-96); MEAN PLT VOLUME 8.2 fl (7.5-11.1); NEUT % 43.5 % (42.8-82.8); PLATELET COUNT 190 10^3/uL (134-434); RBC 4.75 M/mm3 (3.60-5.2); RDW 13.1 % (11.6-15.6); WHITE BLOOD COUNT 5.3 K/mm3 (4.0-10.0)
[2021-04-30] MEDS ORDERED: CARVEDILOL 12.5 MG TABLET (FP) ONE (19:50)
[2021-04-30] MEDS ORDERED: CLOPIDOGREL BISULFATE 300 MG TABLET ONE (19:50)
[2021-04-30] MEDS ORDERED: ASPIRIN 81 MG CHEWABLE TABLETS ONE (19:50)
[2021-04-30 19:56] LABS: EPI CELLS 4 /uL (0-25.1); HYALINE CASTS 0 /uL (0-3.1); URINE APPEARANCE CLEAR; URINE BACTERIA 2 /uL (0-1359); URINE BILIRUBIN NEGATIVE (NEGATIVE); URINE COLOR YELLOW; URINE GLUCOSE (UA) NEGATIVE (NEGATIVE); URINE KETONE NEGATIVE (NEGATIVE); URINE LEUK ESTERASE TRACE (NEGATIVE); URINE NITRITE NEGATIVE (NEGATIVE); URINE PROTEIN TRACE (NEGATIVE); URINE RBC 1 /uL (0-23.9); URINE UROBILINOGEN 0.2 mg/dL (0.2-1.0); URINE WBC 14 /uL (0-25.8)
[2021-04-30 19:59] LABS: INR 1.08 (0.83-1.09); PROTHROMBIN TIME (PATIENT) 12.7 SEC (9.7-13.0)
[2021-04-30 20:02] LABS: ACTIVATED PTT 28.5 SECONDS (25.2-36.5)
[2021-04-30 20:12] LABS: CHLORIDE 103 mmol/L (98-107); SODIUM 136 mmol/L (136-145)
[2021-04-30 20:16] LABS: ALBUMIN 4.3 g/dl (3.4-5.0); ANION GAP 7 MMOL/L (8-16); BLOOD UREA NITROGEN 17.4 mg/dL (7-18); CALCIUM 9.8 mg/dL (8.5-10.1); CO2 26 mmol/L (21-32)
[2021-04-30 20:17] LABS: GLUCOSE,RANDOM 91 mg/dL (74-106)
[2021-04-30 20:19] LABS: CHOLESTEROL 187 mg/dL (50-200); CREATININE 0.8 mg/dL (0.55-1.3); SGOT/AST 27 U/L (15-37); SGPT/ALT 40 U/L (13-61); TRIGLYCERIDES 371 mg/dL (0-150)
[2021-04-30 20:20] LABS: LDL CHOLESTEROL (ONLY SJRH) 92 mg/dL (5-100)
[2021-04-30 20:21] LABS: ALK PHOS 77 U/L (45-117); BILIRUBIN,TOTAL 0.6 mg/dL (0.2-1); HDL CHOLESTEROL 47 mg/dL (40-60); TOT PROT 8.3 g/dl (6.4-8.2)
[2021-04-30] MEDS ORDERED: HEPARIN NA (PORCINE) 5,000 UNITS/ML 1ML VIAL SQ SCH (23:45)
[2021-05-01 03:13] VITALS: BMI 28.5
[2021-05-01] MEDS ORDERED: ADALIMUMAB 40 MG/0.8 ML SQ SCH (03:45)
[2021-05-01] MEDS ORDERED: [UNRECOGNIZED DRUG - OTHER] SQ SCH (03:45)
[2021-05-01] MEDS: PANTOPRAZOLE 20 MG TABLET PO SCH (06:03)
[2021-05-01 09:18] LABS: BASO % 0.6 % (0-2.0); EOS % 3.8 % (0-4.5); HEMATOCRIT 38.8 % (32.4-45.2); HEMOGLOBIN 13.6 GM/dL (10.7-15.3); MCHC 35.1 g/dl (32.0-36.0); NEUT % 42.6 % (42.8-82.8); PLATELET COUNT 162 10^3/uL (134-434); RBC 4.27 M/mm3 (3.60-5.2); RDW 13.3 % (11.6-15.6); WHITE BLOOD COUNT 3.9 K/mm3 (4.0-10.0)
[2021-05-01] MEDS: ENOXAPARIN NA (PORCINE) 40 MG/0.4 ML DISP.SYRIN SQ SCH (09:29)
[2021-05-01] MEDS: POLYETHYLENE GLYCOL (HEALTHYLAX) 3350 17 GM PACKET PO SCH (09:29)
[2021-05-01] MEDS: ACETAMINOPHEN 325 MG TABLET (FP) PO SCH ×2 (09:30→21:00)
[2021-05-01] MEDS: CLOPIDOGREL BISULFATE 75 MG TABLET (FP) PO SCH (09:30)
[2021-05-01] MEDS: oxyCODONE HCL 5 MG TABLET PO SCH ×2 (09:31→21:00)
[2021-05-01 09:54] LABS: ALBUMIN 3.6 g/dl (3.4-5.0); BLOOD UREA NITROGEN 14.1 mg/dL (7-18); CALCIUM 9.2 mg/dL (8.5-10.1)
[2021-05-01 09:56] LABS: BILIRUBIN,TOTAL 0.6 mg/dL (0.2-1)
[2021-05-01 09:57] LABS: CREATININE 0.7 mg/dL (0.55-1.3)
[2021-05-01 09:58] LABS: TOT PROT 7.4 g/dl (6.4-8.2)
[2021-05-01] MEDS: ASPIRIN 81 MG CHEWABLE TABLETS PO SCH (17:35)
[2021-05-02] MEDS: PANTOPRAZOLE 20 MG TABLET PO SCH (06:19)
[2021-05-02] MEDS: CARVEDILOL 25 MG TABLET (FP) PO SCH ×3 (09:39→21:41)
[2021-05-02] MEDS: ACETAMINOPHEN 325 MG TABLET (FP) PO SCH ×3 (09:39→21:41)
[2021-05-02] MEDS: oxyCODONE HCL 5 MG TABLET PO SCH ×3 (09:40→21:42)
[2021-05-02] MEDS: CLOPIDOGREL BISULFATE 75 MG TABLET (FP) PO SCH (09:40)
[2021-05-02] MEDS: ASPIRIN 81 MG CHEWABLE TABLETS PO SCH (09:40)
[2021-05-02] MEDS: POLYETHYLENE GLYCOL (HEALTHYLAX) 3350 17 GM PACKET PO SCH (09:42)
[2021-05-02] MEDS: ENOXAPARIN NA (PORCINE) 40 MG/0.4 ML DISP.SYRIN SQ SCH (09:42)
[2021-05-02] MEDS: ROSUVASTATIN CA 10 MG TABLET PO SCH ×2 (20:44→21:41)
[2021-05-02] MEDS: MESALAMINE 800 MG TABLET.DR PO SCH ×2 (20:45→21:41)
[2021-05-02] MEDS ORDERED: ROSUVASTATIN CA 20 MG TABLET PO SCH (22:00)
[2021-05-03] MEDS ORDERED: PT OWN MED DRAWER 7, Y5N ONE (05:49)
[2021-05-03] MEDS: PANTOPRAZOLE 20 MG TABLET PO SCH (06:03)
[2021-05-03 07:30] LABS: HEMATOCRIT 41.2 % (32.4-45.2); HEMOGLOBIN 13.8 GM/dL (10.7-15.3); MCH 30.8 pg (25.7-33.7); MCHC 33.4 g/dl (32.0-36.0); MEAN CELL VOLUME 92.3 fl (80-96); MEAN PLT VOLUME 7.8 fl (7.5-11.1); PLATELET COUNT 170 10^3/uL (134-434); RBC 4.46 M/mm3 (3.60-5.2); RDW 13.3 % (11.6-15.6); WHITE BLOOD COUNT 4.4 K/mm3 (4.0-10.0)
[2021-05-03 07:51] LABS: CREATININE 0.7 mg/dL (0.55-1.3)
[2021-05-03] MEDS ORDERED: LORazepam 1 MG TABLET PO ONE (08:00)
[2021-05-03] MEDS: oxyCODONE HCL 5 MG TABLET PO SCH (09:56)
[2021-05-03] MEDS: POLYETHYLENE GLYCOL (HEALTHYLAX) 3350 17 GM PACKET PO SCH (09:56)
[2021-05-03] MEDS: ASPIRIN 81 MG CHEWABLE TABLETS PO SCH (09:57)
[2021-05-03] MEDS: CARVEDILOL 25 MG TABLET (FP) PO SCH (09:58)
[2021-05-03] MEDS: ACETAMINOPHEN 325 MG TABLET (FP) PO SCH (09:58)
[2021-05-03] MEDS: MESALAMINE 800 MG TABLET.DR PO SCH (09:58)
[2021-05-03] MEDS: ENOXAPARIN NA (PORCINE) 40 MG/0.4 ML DISP.SYRIN SQ SCH (10:52)
[2021-05-03 13:58] VITALS: BP 167/83; PULSE 70; TEMP 97.2
== END 2021-05-03 16:21 | disposition home or self-care (01) | DRG 69 ==
LOC: JER 18:29 → JERBED 21:05 → J4S 05-01 02:39
PROVIDERS: ADMIT Internal Medicine; ATTEND Internal Medicine
DX: G45.9 Transient cerebral ischemic attack, unspecified (principal); I10 Essential (primary) hypertension; E78.5 Hyperlipidemia, unspecified; I35.0 Nonrheumatic aortic (valve) stenosis; R55 Syncope and collapse; R47.1 Dysarthria and anarthria; R29.810 Facial weakness
CPT/HCPCS: 36415; 70450-TC; 70551-TC; 80048; 80053; 80061; 81003; 82550; 82553; 83036; 83735; 84443; 84484; 85025; 85027; 85610; 85730; 86850; 86900; 86901; 93005; 93010; 93880-TC; 99285-25; C9803; U0003; U0005